=== PATIENT | male | born 1955 | race Caucasian/White ===

== ENCOUNTER 2021-04-13 09:38 | Emergency (ER) | payer OTHER ==
[2021-04-13 09:59] VITALS: BP 128/97; PULSE 90; TEMP 98.2; BMI 25.2
[2021-04-14 10:07] LABS: SARS-CoV-2 NAA Detected (Not Detected)
== END 2021-04-13 11:28 | disposition home or self-care (01) ==
LOC: JER 09:38
DX: J06.9 Acute upper respiratory infection, unspecified (principal)
CPT/HCPCS: 87070; 99283-25; C9803; U0003; U0005

== ENCOUNTER 2022-12-30 07:39 | Day surgery (SDC) | payer MEDICARE ==
[2022-12-28 14:52] VITALS: BMI 25.1
[2022-12-30] MEDS ORDERED: LIDOCAINE HCL/PF 2% SDV 5ML VIAL ONE (08:43)
[2022-12-30] MEDS ORDERED: MIDAZOLAM HCL 2 MG/2 ML SINGLE DOSE VIAL ONE (08:44)
[2022-12-30] MEDS ORDERED: PROPOFOL 20 ML ONE (08:44)
[2022-12-30] MEDS ORDERED: ceFAZolin SODIUM 1 GM VIAL ONE (09:36)
[2022-12-30] MEDS ORDERED: DEXAMETHASONE SOD PHOSPHATE 4 MG/1 ML VIAL ONE (09:36)
[2022-12-30] MEDS ORDERED: ONDANSETRON 4 MG/2 ML VIAL ONE (10:15)
[2022-12-30] MEDS ORDERED: KETOROLAC TROMETHAMINE 30 MG/1 ML VIAL ONE (10:15)
[2022-12-30] MEDS ORDERED: BUPIVACAINE HCL/PF 0.25% (2.5MG/ML) 10 ML VIAL IJ ONE (10:16)
[2022-12-30] MEDS ORDERED: oxyCODONE HCL 5 MG TABLET PO PRN ×2 (10:35)
[2022-12-30] MEDS ORDERED: PROMETHAZINE HCL 25 MG/1 ML VIAL IVPB PRN (10:35)
[2022-12-30] MEDS ORDERED: ACETAMINOPHEN 1000 MG/100 ML BAG IVPB ONE (10:35)
[2022-12-30] MEDS ORDERED: ONDANSETRON 4 MG/2 ML VIAL IVPUSH PRN (10:35)
[2022-12-30] MEDS ORDERED: LACTATED RINGERS SOLUTION 1,000 ML IV SCH (10:45)
[2022-12-30 12:19] VITALS: PULSE 58
[2022-12-30 12:43] VITALS: RESP 18; TEMP 97.2
[2022-12-30 13:56] VITALS: BP 130/78
[2022-12-30] MEDS ORDERED: oxyCODONE HCL 5 MG TABLET ONE (14:05)
== END 2022-12-30 14:52 | disposition home or self-care (01) ==
LOC: FASU 07:39
PROVIDERS: ATTEND Orthopaedic Surgery Sports Medicine
PROC: 0SBC4ZZ Excision of Right Knee Joint, Percutaneous Endoscopic Approach (ICD-10-PCS; principal; 2022-12-30 10:03)
DX: S83.241A Other tear of medial meniscus, current injury, right knee, initial encounter (principal); M65.9 Synovitis and tenosynovitis, unspecified; X58.XXXA Exposure to other specified factors, initial encounter; Y93.9 Activity, unspecified; Y92.9 Unspecified place or not applicable
CPT/HCPCS: 94760